=== PATIENT | female | born 1970 | race Caucasian/White ===

== ENCOUNTER 2017-06-06 04:13 | Emergency (ER) | payer MEDICAID ==
[~2017-06-06] VITALS: Ht 162.6 cm; Wt 72.6 kg
[2017-06-06 04:26] VITALS: Ht 162.6 cm; Wt 72.6 kg
[2017-06-06 09:27] VITALS: BP 106/65
== END 2017-06-06 09:15 | disposition home or self-care (01) ==
LOC: ED 04:13
DX: J45.901 Unspecified asthma with (acute) exacerbation (principal)
CPT/HCPCS: J7512; J7620

== ENCOUNTER 2020-01-07 09:38 | Emergency (ER) | payer MEDICAID ==
[~2020-01-07] VITALS: Ht 165.1 cm; Wt 89.4 kg
[2020-01-07 09:45] VITALS: Ht 165.1 cm; Wt 89.4 kg
[2020-01-07 12:07] VITALS: BP 132/54
== END 2020-01-07 12:09 | disposition home or self-care (01) ==
LOC: ED 09:38
DX: S63.601A Unspecified sprain of right thumb, initial encounter (principal); J45.909 Unspecified asthma, uncomplicated; W18.39XA Other fall on same level, initial encounter; Y93.89 Activity, other specified; Y92.89 Other specified places as the place of occurrence of the external cause; Y99.8 Other external cause status